=== PATIENT | female | born 1970 | race Caucasian/White ===

== ENCOUNTER 2016-07-13 07:37 | Emergency (ER) | payer BC ==
--- NOTE | ~2016-07-13 | CT2 ---
[facility] A Service [facility] RADIOLOGY TEXT RESULTS PATIENT: GARETT CLINTON LOCATION: SED : 72 UNIT #: [id number] AGE: [address]: Sandeep Polk MD SEX: F ORDER DR: [id number] [place] [id number] E MR#: [id number] Acc #: [id number] NAME: GARETT CLINTON : 1970 SEX: F STUDY DATE/TIME: 07/13/2016 8:54 UNIT: SED ROOM: STUDY DESCRIPTION: CT Abd and Pelv W Cont Attending Physician: Sandeep Polk M.D. Ordering Physician: Sandeep Polk M.D. Primary Care Physician: Roshan Salcido M.D. MEDICAL IMAGING REPORT This report is preliminary unless electronic signature is present. EXAM CT abdomen and pelvis with contrast. INDICATION Generalized and lower abdominal pain since yesterday. PROCEDURE Contrast-enhanced CT of the abdomen and pelvis. This CT exam was performed with one or more of the following radiation dose reduction techniques: automatic exposure control, adjustment of mA and/or kV according to patient size, and iterative reconstruction. COMPARISON 09/10/2010 FINDINGS ABDOMEN WITH CONTRAST: Included lung bases are predominately clear. Liver is borderline enlarged at 19.7 cm. Spleen measures 14.3 cm. The kidneys, adrenal glands, pancreas, gallbladder are unremarkable. The bowel loops are nondilated. Appendix is normal. There are uncomplicated diverticula scattered throughout the colon. PELVIS WITH CONTRAST: Uterus present. No pelvic mass or fluid. No aggressive appearing bone lesions. IMPRESSION 1. No acute findings. 2. Hepatosplenomegaly. 3. Appendix is normal. 4. Colonic diverticulosis with no definitive evidence for active complication. [facility] A Service [facility] RADIOLOGY TEXT RESULTS PATIENT: GARETT CLINTON LOCATION: SED : 72 UNIT #: [id number] AGE: [address]: Sandeep Polk MD SEX: F ORDER DR: Dictated by... John Neves M.D. THIS IS AN ELECTRONICALLY VERIFIED REPORT John Neves M.D. at 07/13/2016 3:55 PM EED/ana TD: 07/13/2016 10:04 JOB #: [id number] MEDICAL IMAGING REPORT Page 1 of 1
[~2016-07-13 07:37] MED LIST: ACETAMINOPHEN; ACETAMINOPHEN PO; BACTROBAN15 GM TOP; CIPRO PO; DICLOFENAC; EFFEXOR75 MG PO; ELIQUIS5 MG PO; FLEXERIL PO; IBUPROFEN PO; LASIX PO; MIRALAX255 GM PO; NO MEDICATIONS; TRAMADOL HCL50 M1 PO; VICODIN 5/500 T1 TAB PO
[2016-07-13 08:06] LABS: BASOPHIL# 0.1 X10e3 (0-0.3); BASOPHIL% 0.8 % (0-2.5); DIFF IND NO; EOSINOPHIL# 0.1 X10e3 (0-0.7); HEMATOCRIT 38.4 % (35.0-45.0); LYMPHOCYTE# 1.7 X10e3 (1.0-3.5); LYMPHOCYTE% 23.3 % (17.0-45.0); MEAN CELL VOLUME 88.2 FL (83-96); MEAN CORPUSCULAR HEMOGLOBIN 29.8 PG (28-34); MEAN CORPUSCULAR HGB CONC 33.8 g/dL (30-36); MEAN PLATELET VOLUME 7.2 FL (6.5-11.5); MONOCYTE# 0.5 X10e3 (0-1.0); MONOCYTE% 7.6 % (3.0-12.0); NEUTROPHIL# 4.8 X10e3 (1.5-7.1); NEUTROPHIL% 66.3 % (40-75); PLATELET COUNT 276 X10e3 (140-420); RED BLOOD COUNT 4.35 X10e (3.90-5.30); WHITE BLOOD COUNT 7.2 X10e3 (4.0-10.5)
[2016-07-13 08:25] LABS: ALBUMIN SERUM 3.7 g/dL (3.5-5.0); ALKALINE PHOSPHATASE 168 U/L (32-92); ALT (SGPT) 23 U/L (10-40); AST (SGOT) 28 U/L (10-42); BILIRUBIN, DIRECT 0.1 mg/dL (0.0-0.2); BILIRUBIN,INDIRECT 0.5 mg/dL (0.0-0.9); BILIRUBIN,TOTAL 0.6 mg/dL (0.2-2.0); BLOOD UREA NITROGEN 12 mg/dL (9-23); CALCIUM SERUM 8.7 mg/dL (8.4-10.2); CARBON DIOXIDE 25 mmol/L (22-31); CHLORIDE 105 mmol/L (100-111); CREATININE SERUM 0.8 mg/dL (0.6-1.4); GLOM FILT RATE Estimated 89.7 mL/min (>60); GLUCOSE FASTING 125 mg/dL (70-110); LIPASE 25 U/L (22-51); POTASSIUM 3.8 mmol/L (3.5-5.1); PROTEIN TOTAL SERUM 7.3 g/dL (6.0-8.3); SODIUM 135 mmol/L (135-145)
[2016-07-13 08:38] LABS: AMYLASE <7 U/L (0-46)
== END 2016-07-13 10:59 | disposition home or self-care (01) ==
LOC: SED 07:37
PROVIDERS: Emergency Medicine
DX: A08.4 Viral intestinal infection, unspecified (principal); F41.9 Anxiety disorder, unspecified; Z88.2 Allergy status to sulfonamides; Z91.040 Latex allergy status
CPT/HCPCS: 36415; 74177; 80048; 80076; 82150; 83690; 84703; 85025; 96361; 96374; 99284; J2405; Q9967

== ENCOUNTER 2016-11-23 10:10 | Emergency (ER) | payer BC | END 2016-11-23 11:42 | disposition home or self-care (01) | LOC: SED 10:10 | DX: L03.116 Cellulitis of left lower limb (principal); B35.6 Tinea cruris; F41.9 Anxiety disorder, unspecified; Z98.51 Tubal ligation status; Z91.040 Latex allergy status; Z88.8 Allergy status to other drugs, medicaments and biological substances; Z79.899 Other long term (current) drug therapy | CPT/HCPCS: 99282 ==